=== PATIENT | male | born 1990 | race Caucasian/White ===

== ENCOUNTER 2017-05-22 14:35 | Emergency (ER) | payer OTHER ==
[~2017-05-22] VITALS: Ht 180.3 cm; Wt 71.4 kg
[~2017-05-22 14:35] MED LIST: CARAFATE1 GM PO; CIPRO500 MG PO; FLAGYL500 MG PO; OMEPRAZOLE40 M1 PO; PEPCID20 MG PO; PRILOSEC20 MG PO; ZANTAC15 MG/ML PO
[2017-05-22 15:39] LABS: HEMATOCRIT 42.2 % (38.0-50.0); HEMOGLOBIN 14.8 G/DL (12.5-16.6); MCH 31.8 PG (29.0-34.0); MCHC 35.1 G/DL (30.0-36.0); MCV 90.8 FL (86-99); PLATELET COUNT 261 K/uL (156-360); RBC DIS.WIDTH-SD 39.8 % (39-53); RED BLOOD COUNT 4.65 M/uL (4.00-5.50); WHITE BLOOD COUNT 5.1 K/uL (4.1-10.2)
[2017-05-22 15:49] LABS: CHLORIDE 107 mEq/L (99-109); POTASSIUM 4.4 mEq/L (3.7-5.4); SODIUM 143 mEq/L (136-147)
[2017-05-22 15:50] LABS: GLUCOSE 92 mg/dL (70-99)
[2017-05-22 15:54] LABS: CREATININE 0.9 mg/dL (0.6-1.3); GFR ESTIMATE (CALCULATED) > 59 mL/min/ (58.99-99999)
[2017-05-22 15:55] LABS: UREA NITROGEN (BUN) 7 mg/dL (9-23)
[2017-05-22 18:06] VITALS: BP 130/71
== END 2017-05-22 19:17 | disposition home or self-care (01) ==
LOC: EME 14:35
DX: R00.2 Palpitations (principal); R11.2 Nausea with vomiting, unspecified; K31.84 Gastroparesis; K21.9 Gastro-esophageal reflux disease without esophagitis; Z87.891 Personal history of nicotine dependence; Z88.1 Allergy status to other antibiotic agents; Z88.6 Allergy status to analgesic agent
CPT/HCPCS: 71046; 80048; 85027; 93005; 99281; 99285

== ENCOUNTER 2017-05-24 12:02 | Emergency (ER) | payer OTHER ==
[~2017-05-24] VITALS: Ht 180.3 cm; Wt 69.2 kg
[2017-05-24 14:58] LABS: APPEARANCE CLOUDY ((CLEAR)); BILIRUBIN NEGATIVE; BLOOD NEGATIVE; GLUCOSE (STRIP) NEGATIVE; KETONES NEGATIVE; LEUKOCYTES NEGATIVE; NITRITE NEGATIVE; PROTEIN (STRIP) NEGATIVE; UROBILINOGEN 0.2 MG/DL (0.2-1.0)
[2017-05-24 14:59] LABS: COLOR YELLOW ((YELLOW))
[2017-05-24 15:07] LABS: BACTERIA NONE SEEN /HPF; EPITHELIAL CELLS NONE SEEN /HPF; MUCUS NONE SEEN /LPF; RED BLOOD CELLS 0-5 /HPF (0-5); UCUL ADDED? NO; WHITE BLOOD CELLS 0-5 /HPF (0-5)
[2017-05-24 16:32] VITALS: BP 135/75
== END 2017-05-24 16:33 | disposition home or self-care (01) ==
LOC: EME 12:02
PROVIDERS: Nurse Practitioner Family
DX: R00.2 Palpitations (principal); K31.84 Gastroparesis; R42 Dizziness and giddiness; R51 Headache; Z90.49 Acquired absence of other specified parts of digestive tract; Z87.891 Personal history of nicotine dependence
CPT/HCPCS: 81003; 93005; 99281; 99284